=== PATIENT | male | born 1995 | race Caucasian/White ===

== ENCOUNTER 2016-06-14 11:26 | Emergency (ER) | payer MEDICAID ==
[~2016-06-14] VITALS: Ht 182.9 cm; Wt 63.5 kg
[~2016-06-14 11:26] MED LIST: AMOXICOT500 M1 PO; CEPHALEXIN500 MG PO; ERYTHROMYCIN1 GM/UDP OP; NAPROXEN375 MG; NOMEDS XX
[2016-06-14 11:39] LABS: HEMOGLOBIN 15.6 g/dL (14.1-18.0); LYMPH # 2.2 K/mm3 (0.7-4.5); LYMPH % 35.5 % (10-50)
--- NOTE | 2016-06-14 11:45 | Emergency Room Report ---
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 N Clinical Suspician of Infection? N Mental Status: 1 - Regular (Normal Baseline) Sepsis Risk:Possible Sepsis Risk Have you (or family members/close friends) recently traveled outside the [place]? N If Yes, where/when: Have you had exposure to infectious disease within the past month? N TB? Other? Specify: Pain to right lower ribs at work today. Is RHD. Pain worse with inspiration. No fever or flu sx but has had a recent cough. Is a smoker. No recent travel or calf pain. ALLERGIES Coded Allergies: No Known Allergies (06/14/16) Home Medications Reported Medications No Home Medications (NO HOME MEDICATIONS) 1 EACH XX ONCE History Medical History General CAD? No Angina: No VT: No Hypertension? No Hyperlipidemia? No CHF? No DVT? No PE? No COPD? No Asthma? No Anemia? No GERD? No Gastric ulcers? No GI Bleed? No Hernia? No Thyroid Problems? No Hypothyroidism? No CVA? No Seizures? No Diabetes? No Insulin Dependent: No Insulin Pump: No Home FSBS? No Renal Insuffiency? No End Stage Renal Disease? No UTI? No Stones? No BPH? No GB Disease: No Nephritic Syndrome? No Asplenia? No Hepatitis? No Sickle Cell Disease? No Arthritis? No Migraines? No Cataracts? No Glaucoma? No MRSA? No HIV? No TB? No Anxiety? No Depression? No Cancer? No More? No Immunization Hx DT/Tetanus 1-4 Years Ago Surgical Hx Previous Surgery?Y RIGHT EYE RIGHT Social History Smoking Hx Smoker: Current Every Day Smoker Tobacco: Yes Type Cigarettes Packs/day < 1 Pack Are you/the child exposed to second-hand smoke: Yes Alcohol Alcohol: No Review of Systems All Other Systems Reviewed and Negative Respiratory see HPI Musculoskeletal see HPI Physical Exam Vital Signs Vital Signs Date Time Temp Pulse Resp B/P Pulse O2 O2 Flow FiO2 Ox Delivery Rate 06/14 1308 84 18 135/77 98 06/14 1223 82 20 112/61 97 06/14 1200 20 06/14 1127 98.0 104 20 145/97 100 General Appearance normal appearance, WD/WN, no apparent distress Neck supple, full range of motion Respiratory Status Yes: trachea midline, chest symmetrical, tender on palpation, pain on inspiration, non productive cough. No: respiratory distress, non tender chest, use of accessory muscles, pain on expiration, productive cough (Right pectoralis inferiorly). Lung Sounds bilateral: normal breath sounds, lungs clear. Cardiovascular normal exam, regular rate/rhythm, no peripheral edema, no gallop, no JVD, no murmur, no rub, JVD Gastrointestinal normal bowel sounds, normal exam, non tender, soft, no organomegaly, no pulsatile mass, no guarding, no rebound Extremities non-tender, no calf tenderness, no pedal edema Neurologic alert, normal exam, no motor/sensory deficits, oriented x 3 Skin intact, normal color Medical Decision Making LABS/Meds/Orders Pt receiving controlled substance in ED? No Results/Orders Laboratory Tests 06/14/16 1130: Sodium 140, Potassium 4.0, Chloride 102, Carbon Dioxide 29, BUN 13, Creatinine 1.0, Estimated Creat Clear 105, Estimated GFR (MDRD) 94, Glucose 103, Calcium 9.2, Total Bilirubin 0.3, AST 14 L, ALT 25, Alkaline Phosphatase 69, Creatine Kinase 181, CK-MB (CK-2) Rel Index 0.8, CK and CKMB Interp 1.4, Troponin I < 0.02, Total Protein 7.7, Albumin 4.3, Globulin 3.4 H, Albumin/Globulin Ratio 1.3, D-Dimer < 100, WBC 6.1, RBC 5.05, Hgb 15.6, Hct 47.2, MCV 93.3, RDW 14.0, Plt Count 260, MPV 9.0, Gran % 55.9, Gran # 3.4, Lymphocytes % 35.5, Monocytes % 5.2, Eosinophils % 2.3, Basophils % 1.1, Lymphocytes # 2.2, Monocytes # 0.3, Eosinophils # 0.1, Basophils # 0.1, PUBS MCHC 33.2, MCH 31.0 Current Medication Orders Sig/Daniele Start time Last Medication Dose Route Stop Time Status Admin Ketorolac 30 MG ONCE ONE 06/14 1200 DC 06/14 Tromethamine IV 06/14 1201 1200 Ketorolac 0 .STK-MED ONE 06/14 1157 DC Tromethamine .ROUTE Aspirin 324 MG ONCE ONE 06/14 1145 DC 06/14 PO 06/14 1146 1135 Sodium Chloride 10 ML PRN PRN 06/14 1145 AC IV 06/15 1133 Aspirin 0 .STK-MED ONE 06/14 1133 DC .ROUTE Orders Procedure Date/time Status D-DIMER 06/14 1156 Complete ELECTROCARDIOGRAM REQUEST 06/14 1133 Active IV SALINE LOCK 06/14 1133 Active CBC WITH AUTO DIFF 06/14 1133 Complete CARDIAC ENZYMES 06/14 113 Complete CHEM 12 PROFILE 06/14 113 Complete 12 LEAD EKG-DIEUDONNE (INITIAL) 06/14 1130 Active CM/EKG CM/EKG EKG rate (91), NSR, rhythm, no evid. of ischemic chgs, no ectopy, normal QRS, normal CO, normal EKG, non-spec. ST/Twave chgs XRAY/CT/US XRAY/CT/US XR interpretation by reviewed by me (report reviewed) Xray Results normal/NAD (RML infiltrate per report) Pulmonary Embolism Score WELL'S CRITERIA FOR PE WELL'S CRITERIA FOR PE Response Value Clinical signs/symptoms of DVT NO 0 PE is #1 diagnosis or equally likely NO 0 Heart rate is > 100 YES 1 Immobile at least 3 days, or surgery in past 4 wks NO 0 Previously, obj. diagnosed PE or DVT NO 0 Hemoptysis NO 0 Malignancy w/Rx within 6mo, or palliative NO 0 Total 1 Patient's PE Risk 1-2pts=MOD RISK (28%) Departure Departure Time of Disposition 1307 Disposition DC Home or Self Care(routine) Clinical Impression Primary Impression: RML pneumonia Qualifiers: Pneumonia type: due to unspecified organism Qualified Code: J18.9 - Pneumonia, unspecified organism Condition STABLE Patient Instructions Pneumonia-Adult Additional Instructions Zithromax, take Advil over the counter, see your family doctor (you said he was listed on your card) in one week for follow up Discharge Counseling Counseled pt/family regarding diagnosis, test results, medications/RX, home care, follow up needs Prescriptions Current Visit Scripts Azithromycin (Avpak Azithromycin) 250 MG PO DAILY #6 TAB Zpack over five days as directed ED Critical Care Critical Care No at 2025
[2016-06-14 12:04] LABS: BUN 13 mg/dL (7-18); GFR (ESTIMATED) 94 ML/MIN (>60)
--- NOTE | 2016-06-14 12:54 | RADIOLOGY REPORT PS360 ---
CHEST-PORTABLE HISTORY: CHEST PAIN ORDERING PHYSICIAN: Patricia Naranjo MD PATIENT AGE: 21 years COMPARISON: 10/14/2012 FINDINGS: The cardiomediastinal silhouette and pulmonary vascularity are within normal limits. There is increased density in the right midlung laterally may be due to an area of pneumonia. This overlies the fourth rib anteriorly. Upright PA and lateral chest may confirm.. No acute bony abnormalities. IMPRESSION: Right midlung pneumonia. Recommend follow until clear
[2016-06-14] MEDS ORDERED: AVPAK AZITHROM250 MG PO (13:09)
[2016-06-14 13:18] VITALS: BP 128/72
== END 2016-06-14 13:26 | disposition home or self-care (01) ==
LOC: ER 11:26
PROVIDERS: Emergency Medicine
DX: J18.9 Pneumonia, unspecified organism (principal); Z72.0 Tobacco use

== ENCOUNTER 2017-03-13 07:36 | Emergency (ER) | payer MEDICAID ==
[~2017-03-13] VITALS: Ht 182.9 cm; Wt 68.0 kg
[~2017-03-13 07:36] MED LIST changes: +AVPAK AZITHROM250 MG PO
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
--- OUTSIDE RECORDS SUMMARY | 2017-03-13 08:02 | External Medical Summary Rpt ---
Author Author CLAUDY Campoverde, [employer] Organization [employer] Address Unknown Phone Unavailable
--- OUTSIDE RECORDS SUMMARY | 2017-03-13 08:02 | External Medical Summary Rpt | CCD ---
Demographics Preferred Language German Marital Status Unknown Sikh Affiliation Unknown Race Unknown Ethnic Group Unknown Author Author , CLAUDY LOCO Address Unknown Phone Immunization Unable to retrieve immunization data due to connection failure with Immunization Registry. Please try again later.
--- OUTSIDE RECORDS SUMMARY | 2017-03-13 08:02 | External Medical Summary Rpt | CCD ---
Author Author , CLAUDY Minor CLAUDY Address Unknown Phone [email or web address] Care Team Providers Care Hides Inspector Name Role Phone MAN, MAN Unavailable Unavailable KERRI Allen, KERRI López Unavailable Unavailable G MARCOS CAMILLA, Unavailable Unavailable MARCOS CAMILLA SHAKIR JAM, SHAKIR JAM Unavailable Unavailable SHAKIR JAM, SHAKIR JAM Unavailable Unavailable YANELIS SCHILLING, Unavailable Unavailable [facility]EL[facility] Unavailable Unavailable [facility], [facility], [facility] Unavailable Unavailable [facility] Unavailable Unavailable INC, [facility] Unavailable Unavailable HOSPITAL P, [facility], Unavailable Unavailable [facility] KEAGLE RIT, KEAGLE Unavailable Unavailable [facility] KEAGLE RIT, KEAGLE Unavailable Unavailable [facility], [facility] DIEUDONNE EARL, DIEUDONNE EARL Unavailable Unavailable [facility] Unavailable Unavailable SERVICES, [facility] RAGHU R H, Unavailable Unavailable [...] Diagnosis DOS Provider Status J189 PNEUMONIA 06-14-2016 [place] [facility] R079 CHEST PAIN 06-14-2016 [facility] ASS Z720 TOBACCO USE 06-14-2016 [facility] P K5289 OTH SPEC 03-23-2015 [facility] GASTROENTER ITIS & COLITIS K529 NONINFECTIV 03-23-2015 [facility] INC ITIS & COLITIS UNS V642 SURG/OTH 11-08-2014 [facility] PROC NOT [facility] CARRIED OUT INC BECAUSE PTS DECN 12111 OTH 08-12-2013 [facility]I SRINIVASAN MIGRAINE W/O INTRACT W/O STATUS MIGRAINOSUS 460 ACUTE 08-12-2013 [facility] SRINIVASAN NASOPHARYNG ITIS 9221 CONTUSION 10-14-2012 [facility] CHEST EMERGENCY WALL SERVICES 60660 HEAD 10-14-2012 [facility] UNSPECIFIED SERVICES E8120 OTH MOTR 10-14-2012 [facility] W/MOTR SERVICES 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 98671 UNSPECIFIED 12-27-2011 [facility] R INFECTIVE H OTITIS EXTERNA 3804 IMPACTED 12-27-2011 R[facility] R CERUMEN H 3829 UNSPECIFIED 12-27-2011 ARGHU R OTITIS H MEDIA 7295 PAIN IN 08-24-2011 [facility] TISSUES OF LIMB 0088 INTESTINAL 07-07-2011 RAGHU R INFECTION H DUE TO OTHER ORGANISM NEC 20324 LATERAL 06-14-2011 [facility] EPIC[facility] IS OF [place] 97784 CLOSED 01-27-2011 [facility] FRACTURE OF PHYSICIANS BASE OF GROUP OTHER METACARPAL BONE 68389 CLOSED 01-25-2011 [facility] METACARPAL SERVICES BONE SITE UNSPECIFIED 9594 INJURY 01-25-2011 [place] OTHER AND MEDICAL UNSPECIFIED IMAGING ASS HAND EXCEPT FINGER 57581 PAIN IN 01-12-2011 [place] [facility]INT, MEDICAL ANKLE AND IMAGING ASS FOOT 6926 CONTACT 11-04-2010 [facility] DERMATITIS[facility] OTHER [place] DUE TO PLANTS 38434 UNSPECIFIED 04-23-2010 [facility] VIRAL [facility] INFECTION IN CCE & UNS SITE 7840 HEADACHE 04-23-2010 [facility] 3670 HYPERMETROP 04-07-2010 SHAKIR JAM [place] 8830 OPEN WOUND 12-23-2009 [facility] WITHOUT SERVICES MENTION ASSOCIATES COMPLICATIO N 9156 FINGER SUP 12-23-2009 [facility] FB W/O [facility] OPEN INC WOUND&W/O MENTION INF V8289 SPECIAL 07-30-2009 [facility] FOR OTHER SCHOOL SPECIFIED CONDITIONS 88626 PAIN IN 11-04-2008 [facility] JO[facility], ASSOCIATES SHOULDER REGION 75781 CONTUSION 11-04-2008 [facility] OF SHOULDER ASSOCIATES REGION V202 ROUTINE 10-17-2008 [facility] OR [facility] CHILD HEALTH CHECK 55114 PAIN IN 06-22-2007 [facility] JOINT, ASSOCIATES LOWER LEG Medications Na ND [...] DOS Code Location Performer Comment CREATINE 01-24-201 03982 [facility] KINASE 7 [facility] TOTAL INC INC FIBRIN 34384 [facility] DGRADJ 7 [facility] PRODUCTS INC INC D-DIMER QUAL/[place] [address] [facility] TROPONIN 7 [facility] QUANTITAT INC INC TARIQ BLOOD 57384 [facility] COUNT 7 [facility] COMPLETE INC INC AUTO&AUTO DIFRNTL WBC ECG 52604 [facility] ROUTINE 7 [facility] ECG INC INC W/LEAST 12 LDS TRCG ONLY W/O I&R THERAPEUT 36354 [facility] IC 7 [facility] PROPHYLAC INC INC TIC/DX INJECTION SUBQ/IM RADIOLOGI 52130 [place] [facility] C 7 MEDICAL EXAMINATI IMAGING ON CHEST ASS SINGLE VIEW FRONTAL UNCLASSIF J3490 [facility] IED DRUGS 7 [facility] INC INC ECG 32854 [facility] BRO JR ROUTINE 7 [facility] W/LEAST P 12 LDS I&R ONLY CREATINE 04575 [facility] KINASE MB 7 [facility] FRACTION INC INC ONLY COMPREHEN 20694 [facility] SIVE 7 [facility] [place] [address] [facility] AMYLASE 5 [facility] INC INC INJECTION J2405 [facility] 5 [facility] ONDANSETR INC INC ON HCL [place] 1 [place] [address] [facility] INFUSION 5 [facility] THERAPY/P INC INC ROPHYLAXI S /DX 1ST TO 1 HR THERAPEUT 56434 [facility] IC 5 [facility] INJECTION INC INC IV PUSH EACH NEW DRUG UNCLASSIF J3490 [facility] IED DRUGS 5 [facility] INC INC COMPREHEN 27645 [facility] SIVE 5 [facility] METABOLIC INC INC PANEL BLOOD 17990 [facility] COUNT 5 [facility] COMPLETE INC INC AUTO&AUTO DIFRNTL WBC URNLS DIP 42514 [facility] 5 [facility] STICK/TAB INC INC [place] [address] [facility] LIPASE 5 [facility] INC INC BLOOD 70060 KE[facility]LE KEAGLE COUNT 4 RIT RIT COMPLETE AUTO&AUTO DIFRNTL WBC BLOOD 10807 RAGHU RAGHU COUNT 3 R H R H COMPLETE AUTO&AUTO DIFRNTL WBC BLOOD 43908 RAGHU RAGHU COUNT 3 R H R H COMPLETE AUTO&AUTO DIFRNTL WBC REMOVAL 25159 RAGHU RAGHU IMPACTED 2 R H R H CERUMEN INSTRUMEN TATION UNILAT BLOOD 33665 RAGHU RAGHU COUNT 2 R H R H COMPLETE AUTO&AUTO DIFRNTL WBC CLTX 44144 [facility] METACARPA 1 EMERGENCY III JANAE L FX W/O SERVICES MANIPULAT ION EACH BONE RADEX 69049 [place] MARCOS HAND 1 MEDICAL CAMILLA MINIMUM 3 IMAGING VIEWS ASS RADEX 48084 [place] MARCOS ANKLE 1 MEDICAL [place] COMPLETE IMAGING MINIMUM 3 ASS VIEWS RADEX 51615 [place] MARCOS FOOT 1 MEDICAL CAMILLA COMPLETE IMAGING MINIMUM 3 ASS VIEWS BLOOD 53557 FAMILY FAMILY COUNT 0 CARE CARE COMPLETE ASSOCIATE ASSOCIATE AUTO&AUTO S S DIFRNTL WBC GLUCOSE 96561 FAMILY RAGHU POST 0 CARE R H GLUCOSE ASSOCIATE DOSE S DETERMINA 47413 SHAKIR LEVIST HOWELL TION 0 REFRACTIV E STATE FITTING 40136 SHAKIR LYNDA LEVIST HOWELL SPECTACLE 0 S XCPT APHAKIA MONOFOCAL FRAMES V2020 SHAKIR LYNDA LEVIST HOWELL PURCHASES 0 SPHERE V2100 SHAKIR LYNDA LEVIST LYNDA SINGLE 0 VISION PLANO +/- 4.00 PER LENS 1 VISN V2108 SHAKIR LYNDA LEVIST JAM +/-4.25D- 0 +/-7.00D SPHER 2.12-4.00 D CYL EA OPHTH 24362 SHAKIR HOWELL MEDICAL 0 XM&EVAL COMPRHNSV ESTAB PT 1/> INCI 8605 [facility] W/REMOVAL 0 [facility] INC INC FB/DEVICE FROM SKIN & SUBQ TISSUE BLOOD 49434 FAMILY KRISHNAMURTHY, COUNT 0 CARE R LUIS FERNANDO COMPLETE ASSOCIATE AUTO&AUTO S DIFRNTL WBC DETERMINA 08776 SHAKIR SCHILLING TION 9 YANELIS Phillip REFRACTIV E STATE FRAMES V2020 SHAKIR SCHILLING, PURCHASES 9 YANELIS Phillip SPHERE V2100 SHAKIR SCHILLING, SINGLE 9 YANELIS Phillip VISION PLANO +/- 4.00 PER LENS FITTING 24086 SHAKIR SCHILLING, SPECTACLE 9 YANELIS Phillip S XCPT APHAKIA MONOFOCAL OPHTH 22738 SHAKIR SCHILLING, MEDICAL 9 YANELIS Phillip XM&EVAL COMPRHNSV ESTAB PT 1/> OPHTH 38811 SHAKIR SCHILLING, MEDICAL 8 YANELIS Phillip XM&EVAL COMPRHNSV ESTAB PT 1/> FITTING 87496 SHAKIR SCHILLING, SPECTACLE 8 YANELIS Phillip S XCPT APHAKIA MONOFOCAL SPHERE V2100 SHAKIR SCHILLING, SINGLE 8 YANELIS Phillip VISION PLANO +/- 4.00 PER LENS FRAMES V2020 SHAKIR SCHILLING, PURCHASES 8 YANELIS Phillip DETERMINA 23039 SHAKIR SCHILLING, TION 8 YANELIS Phillip REFRACTIV E STATE Encounters Encounter Start End Date Code Location Performer Type Date EMERGENCY 86106 [facility] 7 7 [facility] T VISIT LOW/MODER SEVERITY [facility]OSP[facility] OUTPATIEN INC T EMERGENCY 75898 [facility] SHEPHERD 5 5 [facility] H[facility]GE [facility] SE[facility]ITY [facility] 5 5 [facility] OUTPATIEN INC T EMERGENCY 29031 [facility] 5 5 [facility] INC T VISIT MODERATE SEVERITY [facility]OSP[facility] - 5 5 [facility] OUTPATIEN INC T EMERGENCY 23127 [facility] 5 5 [facility] DEPART[facility] INC T VISIT LOW/MODER SEVERITY OFFICE 42374 [address] OUTPATIEN 4 4 RIT RIT T VISIT 15 MINUTES OFFICE 64044 FAMILY KERRI J OUTPATIEN 4 4 CARE G T VISIT ASSOCIATE 15 S MINUTES OFFICE 59676 FAMILY RAGHU OUTPATIEN 3 3 CARE R H T VISIT ASSOCIATE 15 S MINUTES OFFICE 37796 RAGHU RAGHU OUTPATIEN 3 3 R H R H T VISIT 15 MINUTES EMERGENCY 49153 [facility] DEPT 3 3 EMERGENCY VISIT SERVICES HIGH SEVERITY& THREAT FUNJ OFFICE 40641 RAGHU RAGHU OUTPATIEN 3 3 R H R H T VISIT 15 MINUTES OFFICE 52458 FAMILY RAGHU OUTPATIEN 2 2 CARE R H T VISIT ASSOCIATE 15 S MINUTES OFFICE 97938 RAGHU RAGHU OUTPATIEN 2 2 R H R H T VISIT 15 MINUTES OFFICE 85556 RAGHU RAGHU OUTPATIEN 2 2 R H R H T VISIT 15 MINUTES OFFICE 12049 FAMILY RAGHU OUTPATIEN 2 2 CARE R H T VISIT ASSOCIATE 15 S MINUTES OFFICE 13168 [facility] OUTPATIEN 1 1 PHYSICIAN JAM T VISIT S GROUP 15 MINUTES [facility]OSPITAL [facility] - 1 1 [facility] OUTPATIEN INC T EMERGENCY 62601 [facility] 1 1 [facility] DEPARTMEN INC T VISIT LOW/MODER SEVERITY EMERGENCY 71710 [facility] 1 1 EMERGENCY III [facility] SERVICES T VISIT MODERATE SEVERITY [facility]OSPITAL [facility] - 1 1 [facility] OUTPATIEN INC T OFFICE 33918 FAMILY RAGHU OUTPATIEN 1 1 CARE R H T VISIT ASSOCIATE 15 S MINUTES OFFICE 60578 FAMILY RAGHU OUTPATIEN 1 1 CARE R H T VISIT ASSOCIATE 15 S MINUTES OFFICE 40298 FAMILY RAGHU OUTPATIEN 0 0 CARE R H T VISIT ASSOCIATE 15 S MINUTES [facility] - 0 0 [facility] OUTPATIEN INC T EMERGENCY 68841 [facility] POPEKELLY 0 0 [facility] HIGH/URGE ASSOCIATE NT S SEVERITY EMERGENCY 59457 [facility] 0 0 [facility] DEPARTMEN INC T VISIT LOW/MODER SEVERITY OFFICE 13387 FAMILY RAGHU, OUTPATIEN 0 0 CARE R LUIS FERNANDO T VISIT ASSOCIATE 15 S MINUTES OFFICE 72549 FAMILY RAGHU, OUTPATIEN 0 0 CARE R LUIS FERNANDO T VISIT ASSOCIATE 15 S MINUTES OFFICE 51821 [facility] OUTPATIEN 0 0 MIDDLE MIDDLE T [facility] [employer] MINUTES OFFICE 52286 FAMILY RAGHU, OUTPATIEN 9 9 CARE R LUIS FERNANDO T VISIT ASSOCIATE 15 S MINUTES PERIODIC 55124 FAMILY RAGHU, PREVENTIV 9 9 CARE R LUIS FERNANDO E MED EST ASSOCIATE PATIENT S 12-17YRS OFFICE 60765 FAMILY RAGHU, OUTPATIEN 8 8 CARE R LUIS FERNANDO T VISIT ASSOCIATE 15 S MINUTES
--- OUTSIDE RECORDS SUMMARY | 2017-03-13 08:02 | External Medical Summary Rpt | CCD ---
Demographics Preferred Language Setswana Marital Status Unknown Holiness Affiliation Unknown Race Unknown Ethnic Group Unknown Author Author , CLAUDY LOCO Address Unknown Phone Immunization Unable to retrieve immunization data due to connection failure with Immunization Registry. Please try again later.
--- NOTE | 2017-03-13 08:42 | Emergency Room Report ---
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 N Clinical Suspician of Infection? N Mental Status: 1 - Regular (Normal Baseline) Sepsis Risk:Low Sepsis Risk Have you (or family members/close friends) recently traveled outside the [place]? N If Yes, where/when: Have you had exposure to infectious disease within the past month? TB? Other? Specify: Hornet sting to right auricle last night about fifteen hours ago. Removed stinger. Has mild localized swelling to that area with no vomiting, no SOB, no systemic involvement, no oral edema. Has not taken any medications for this. ALLERGIES Coded Allergies: No Known Allergies (03/13/17) Home Medications Active Scripts Azithromycin (Avpak Azithromycin) 250 MG PO DAILY #6 TAB Prov: 06/14/16 Reported Medications No Home Medications (NO HOME MEDICATIONS) 1 EACH XX ONCE History Medical History General CAD? No Angina: No NE: No Hypertension? No Hyperlipidemia? No CHF? No DVT? No PE? No COPD? No Asthma? No Anemia? No GERD? No Gastric ulcers? No GI Bleed? No Hernia? No Thyroid Problems? No Hypothyroidism? No CVA? No Seizures? No Diabetes? No Insulin Dependent: No Insulin Pump: No Home FSBS? No Renal Insuffiency? No End Stage Renal Disease? No UTI? No Stones? No BPH? No GB Disease: No Nephritic Syndrome? No Asplenia? No Hepatitis? No Sickle Cell Disease? No Arthritis? No Migraines? No Cataracts? No Glaucoma? No MRSA? No HIV? No TB? No Anxiety? No Depression? No Cancer? No More? No Immunization Hx Ped.Immunizations UTD Yes DT/Tetanus 1-4 Years Ago Surgical Hx Previous Surgery?Y RIGHT EYE RIGHT Social History Smoking Hx Smoker: Current Every Day Smoker Tobacco: Yes Type N/A Packs/day < 1 Pack Alcohol Alcohol: No Review of Systems All Other Systems Reviewed and Negative Skin see HPI Physical Exam Vital Signs Vital Signs Date Time Temp Pulse Resp B/P Pulse O2 O2 Flow FiO2 Ox Delivery Rate 03/13 0747 97.9 82 18 122/79 98 General Appearance normal appearance, WD/WN, no apparent distress Eye Exam - bilateral eye normal exam, bilateral eye PERRL, bilateral eye EOMI (no edema to face/eyes) Ear, Nose, Throat hearing grossly normal, normal ENT inspection, normal pharynx, mild erythema and mild edema to pinna on right no FB noted. No secondary infection. Neck normal inspection, non-tender, supple, full range of motion Respiratory Status Yes: trachea midline, chest symmetrical, non tender chest. No: respiratory distress, tender on palpation, use of accessory muscles, pain on inspiration, pain on expiration. Lung Sounds bilateral: normal breath sounds, lungs clear. 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 No Departure Departure Time of Disposition 0839 Disposition DC Home or Self Care(routine) Clinical Impression Primary Impression: Sting, hornet Qualifiers: Encounter type: initial encounter Injury intent: accidental or unintentional Qualified Code: T63.451A - Toxic effect of venom of hornets, accidental (unintentional), initial encounter Condition STABLE Referrals Bert SANDERS,A.C. (Family) Patient Instructions How to Care for an Insect Bite or Sting Additional Instructions Benadryl as needed for itching/swelling, but may cause sleepiness. Advil as needed for pain. See Dr. Noel as needed for follow up. Discharge Counseling Counseled pt/family regarding diagnosis, medications/RX, home care, follow up needs ED Critical Care Critical Care No at 0841
[2017-03-13 08:45] VITALS: BP 119/86
== END 2017-03-13 08:46 | disposition home or self-care (01) ==
LOC: ER 07:36
DX: T63.451A Toxic effect of venom of hornets, accidental (unintentional), initial encounter (principal); F17.210 Nicotine dependence, cigarettes, uncomplicated